=== PATIENT | female | born 1985 | race Caucasian/White ===

== ENCOUNTER 2017-12-02 08:44 | Day surgery (SDC) | payer OTHER ==
[2017-12-02] MEDS ORDERED: PROPOFOL 20 ML (11:10)
== END 2017-12-02 14:50 | disposition home or self-care (01) ==
LOC: GIL 08:44
DX: K20.9 Esophagitis, unspecified (principal); K29.30 Chronic superficial gastritis without bleeding
CPT/HCPCS: 43239; 84703; 88305; 88312; 88313